=== PATIENT | female | born 1965 | race Caucasian/White ===

== ENCOUNTER → 2017-09-04 | Day surgery (SDC) | payer OTHER ==
[~2017-09-04] MED LIST: FENTANYL CITRATE/PF 100MCG/2 ML INJ ONE; FLONASE; LEVOTHYROXINE; LIDOCAINE HCL 2% LOCAL INJ 5 ML SDV VIAL INJ ONE; MIDAZOLAM HCL 2 MG/2 ML VIAL ONE; MULTI-VITAMIN1 EACH; PROPOFOL IV EMULSION 10 MG/ML 50 ML VIAL ONE; VITAMIN D; ZYRTEC10 MG
--- NOTE | 2017-09-04 12:22 | Operative Report ---
DATE OF PROCEDURE: September 04, 2017 REFERRING PHYSICIAN: Dr. Eduardo Eugene. PROCEDURE PERFORMED: Colonoscopy and polypectomy. INDICATIONS FOR COLONOSCOPY: Colorectal cancer screening. MEDICATION: Patient was done under MAC. Please see anesthesiologist's note. PROCEDURE: With the patient in the left lateral decubitus position, the flexible fiberoptic Olympus colonoscope was inserted into the rectum with ease and advanced all the way to the cecum. The scope was then withdrawn slowly, and mucosa overlying the cecum and ascending colon appeared to be within normal limits. A single diverticulum was noted at the hepatic flexure. The transverse and descending appeared to be within normal limits. Diverticular disease was noted to involve the distal descending and the sigmoid colon. One polyp was snared and one polyp was hot biopsied from the sigmoid colon. Two polyps were snared from the rectum. The scope was then retroflexed into the distal rectum and small internal hemorrhoids were noted, none of which was actively bleeding. The scope was then straightened out. The scope was subsequently withdrawn. Patient tolerated procedure well. IMPRESSION: 1. Diverticulosis. 2. Sigmoid colon polyps times 2, one snared and one hot biopsied. 3. Diverticulosis. 4. Rectal polyps times 2 snared. 5. Internal hemorrhoids, none actively bleeding. PLAN: Follow up histology. Initiate high-fiber low-fat diet. Initiate high-fiber supplement. Patient will need a followup colonoscopy in 3 years. Job#: [id number] EV cc:EDUARDO EUGENE DO
== END | disposition home or self-care (01) ==
LOC: OR 08:16
PROVIDERS: ATTEND Internal Medicine Gastroenterology
DX: Z12.11 Encounter for screening for malignant neoplasm of colon (principal); D12.5 Benign neoplasm of sigmoid colon; K62.1 Rectal polyp; K57.30 Diverticulosis of large intestine without perforation or abscess without bleeding; K64.8 Other hemorrhoids; R73.03 Prediabetes; J30.2 Other seasonal allergic rhinitis; R03.0 Elevated blood-pressure reading, without diagnosis of hypertension; F41.9 Anxiety disorder, unspecified; Z88.2 Allergy status to sulfonamides; Z01.810 Encounter for preprocedural cardiovascular examination; Z68.35 Body mass index [BMI] 35.0-35.9, adult
CPT/HCPCS: 45384; 45385; 93005; J2001; J2250; 45378

== ENCOUNTER → 2018-01-26 | Day surgery (SDC) | payer OTHER ==
[2018-01-22 17:19] LABS: BASOPHILS # (AUTO) 0.1 (0.0-0.1); BASOPHILS % 0.5 % (0.0-1.0); EOSINOPHILS # (AUTO) 0.1 (0.0-0.4); EOSINOPHILS % 0.8 % (0.0-6.0); HEMATOCRIT 42.6 % (34.2-44.1); HEMOGLOBIN 13.9 g/dL (12.0-16.0); LYMPHOCYTES # (AUTO) 4.4 (1.0-3.2); LYMPHOCYTES % 30.1 % (18.0-39.1); MEAN CORPUSCULAR HEMOGLOBIN 29.3 pg (28-32); MEAN CORPUSCULAR HGB CONC 32.6 g/dL (31-35); MEAN CORPUSCULAR VOLUME 89.7 fL (81-99); MONOCYTES # (AUTO) 1.1 (0.2-0.8); MONOCYTES % 7.7 % (4.4-11.3); NEUTROPHILS # (AUTO) 8.9 (2.1-6.9); NEUTROPHILS % 60.5 % (38.7-80.0); PLATELET COUNT 306 x10e3/uL (140-360); RED BLOOD COUNT 4.75 x10e6/uL (3.6-5.1); RED CELL DISTRIBUTION WIDTH 13.2 % (11.7-14.4)
[2018-01-22 17:43] LABS: ALBUMIN 3.6 g/dL (3.5-5.0); ANION GAP 15.8 mmol/L (8-16); CALCIUM 9.8 mg/dL (8.4-10.2); CHOL/HDL RATIO 3.6 (3.0-3.6); CREATININE, SERUM 1.12 mg/dL (0.57-1.11); POTASSIUM 3.8 mmol/L (3.5-5.1)
[~2018-01-26] VITALS: Ht 149.9 cm; Wt 73.9 kg
[2018-01-26] VITALS (9 sets, daily range): BP systolic 102–135; BP diastolic 70–99
[~2018-01-26] MED LIST changes: +ALPRAZOLAM 0.5 MG TAB ONE; +DIPHENHYDRAMINE HCL 25 MG CAP ONE; +FARXIGA PO; +FLUTICASONE PRO16 GM; +HEPARIN SOD/SOD CHLORIDE 2,000 ML ONE; +IOPAMIDOL 370 MG/ML 200 ML INFUS..BTL INJ ONE; +LEVOTHYROXINE50 MCG PO; +LIDOCAINE HCL 1% LOCAL INJ 20 ML VIAL ONE; -LIDOCAINE HCL 2% LOCAL INJ 5 ML SDV VIAL INJ ONE; +NITROGLYCERIN/D5W 200 MCG/ML 250 ML ONE; -PROPOFOL IV EMULSION 10 MG/ML 50 ML VIAL ONE; +SODIUM CHLORIDE 0.9% 1000ML 0 ML ONE; +SODIUM CHLORIDE 0.9% 1000ML 1,000 ML ONE; +VERAPAMIL HCL 2.5 MG/ML 2 ML VIAL ONE; -ZYRTEC10 MG; +ZYRTEC10 MG PO
--- NOTE | 2018-01-26 15:52 | Operative Report ---
DATE OF PROCEDURE: January 26, 2018 PROCEDURES PERFORMED 1. Left heart catheterization, selective coronary angiography and left ventriculography. 2. Deployment of right wrist transradial band. COMPLICATIONS: None. RECOMMENDATIONS: Medical therapy. INDICATIONS: Coronary artery disease. Abnormal stress test. Access was obtained in the right radial artery using ultrasound guidance. A 5-Cypriot sheath was placed. Diagnostic coronary angiogram revealed no angiographic coronary artery disease. Dominant right coronary artery. Excellent flow. No plaque noted. LV ejection fraction 60%. LV end-diastolic pressure of 10. No gradient across the aortic valve on pullback. Right wrist TR band applied. Patient discharged home same day. Job#: [id number]
== END | disposition home or self-care (01) ==
LOC: CATH LAB 08:36
PROVIDERS: ATTEND Internal Medicine Interventional Cardiology
DX: I25.118 Atherosclerotic heart disease of native coronary artery with other forms of angina pectoris (principal); R94.39 Abnormal result of other cardiovascular function study; E07.9 Disorder of thyroid, unspecified; R03.0 Elevated blood-pressure reading, without diagnosis of hypertension; Z01.812 Encounter for preprocedural laboratory examination; Z68.32 Body mass index [BMI] 32.0-32.9, adult; Z82.49 Family history of ischemic heart disease and other diseases of the circulatory system; Z82.3 Family history of stroke
CPT/HCPCS: 36415; 80053; 80061; 85025; 93458; C1887; J2001; J2250; J7030; Q9967